=== PATIENT | male | born 1955 | race Caucasian/White ===

== ENCOUNTER → 2021-09-14 | Outpatient (CLI) | payer MEDICARE, OTHER ==
--- NOTE | 2021-09-14 22:20 | US ---
EXAMINATION TYPE: US renals and bladder DATE OF EXAM: 09/14/2021 COMPARISON: NONE CLINICAL HISTORY: R31.1 micro hematuria. EXAM MEASUREMENTS: Right Kidney: 10.7 x 4.7 x 5.5 cm Left Kidney: 10.5 x 5.5 x 4.8 cm Post Void Residual Volume: mL Patient of large body habitus, technically difficult study. Right Kidney: No hydronephrosis or masses seen Left Kidney: No hydronephrosis or masses seen Bladder: wnl Bilateral Jets seen: Yes Normal Post Void Residual: Yes There is no evidence for hydronephrosis at this point in time. No nephrolithiasis is seen. No chalino s are identified. The urinary bladder is adequately distended. Bilateral ureteral jets are seen. Af ter voiding small amount of residual urine with volume near 15 cc. IMPRESSION: Unremarkable study. Source of hematuria not identified. If symptoms persist further inves tigation with CT urogram would be warranted.
== END | disposition home or self-care (01) ==
LOC: RADUSWWP 18:08
PROVIDERS: ATTEND Urology
DX: R31.1 Benign essential microscopic hematuria (principal)
CPT/HCPCS: 76770

== ENCOUNTER → 2022-03-06 | Outpatient (CLI) | payer MEDICARE ==
[2022-03-06 14:44] LABS: Hepatitis B Surface Antigen Nonreactive (Nonreactive)
[2022-03-06 14:51] LABS: African American GFR (CKD) 91.1 (60.0-200.0); Albumin 4.4 g/dL (3.8-4.9); Albumin/Globulin Ratio 1.2 (1.60-3.17); Anion Gap 11.3 mmol/L (10.00-18.00); BUN/Creat Ratio 14.3 Ratio (12.00-20.00); Blood Urea Nitrogen 14.3 mg/dL (9.0-27.0); Calcium 9.5 mg/dL (8.7-10.3); Carbon Dioxide 24.5 mmol/L (20.0-27.5); Globulin 3.6 g/dL (1.6-3.3); Non-African American GFR(CKD) 78.6 (60.0-200.0); Potassium 4.8 mmol/L (3.5-5.5); Total Bilirubin 0.4 mg/dL (0.30-1.20)
[2022-03-07 06:57] LABS: Hepatitis BE Antibody REACTIVE (Nonreactive)
[2022-03-07 06:58] LABS: Hepatitis BE Antigen Nonreactive (Nonreactive)
[2022-03-07 10:01] LABS: Hepatitis B Virus DNA DETECTED (Not detected); Hepatitis B Virus DNA, Quant <10 IU/mL (<10); Log HBV IU/mL <1.00 (<1.00)
== END | disposition home or self-care (01) ==
LOC: LABWHC1 08:05
PROVIDERS: ATTEND Internal Medicine Gastroenterology
DX: B19.10 Unspecified viral hepatitis B without hepatic coma (principal)
CPT/HCPCS: 36415; 80053; 82105; 86707; 87340; 87350; 87517

== ENCOUNTER → 2022-09-05 | Outpatient (CLI) | payer MEDICARE ==
[2022-09-05 15:04] LABS: HCT 50.2 % (39.6-50.0); HGB 15.9 g/dL (13.0-17.0); MCH 27.5 pg (27.0-32.0); MCHC 31.7 g/dL (32.0-37.0); MCV 86.9 fL (80.0-97.0); Mean Platelet Volume 10.4 fL (9.5-12.2); Platelet Count 263 X 10*3/uL (140-440); RBC 5.78 X 10*6/uL (4.40-5.60); RDW 13.2 % (11.5-14.5); WBC 6.18 X 10*3/uL (4.50-10.00)
[2022-09-05 15:05] LABS: NRBC Per 100 WBC 0 /100 WBCS (0.0-0.0)
[2022-09-05 15:54] LABS: African American GFR (CKD) 80.6 (60.0-200.0); Albumin 4.5 g/dL (3.8-4.9); Albumin/Globulin Ratio 1.41 (1.60-3.17); Anion Gap 12.4 mmol/L (10.00-18.00); BUN/Creat Ratio 15.64 Ratio (12.00-20.00); Blood Urea Nitrogen 17.2 mg/dL (9.0-27.0); Calcium 9.6 mg/dL (8.7-10.3); Carbon Dioxide 26.6 mmol/L (20.0-27.5); Globulin 3.2 g/dL (1.6-3.3); Non-African American GFR(CKD) 69.6 (60.0-200.0); Potassium 4.7 mmol/L (3.5-5.5); Total Bilirubin 0.4 mg/dL (0.30-1.20); Total Protein 7.7 g/dL (6.2-8.2)
[2022-09-05 16:08] LABS: Hepatitis B Surface Antibody Reactive (Nonreactive)
[2022-09-05 16:22] LABS: Hepatitis B Surface Antigen Nonreactive (Nonreactive)
[2022-09-06 09:37] LABS: Hepatitis B Virus DNA Not detected (Not detected); Hepatitis B Virus DNA, Quant <10 IU/mL (<10); Log HBV IU/mL <1.00 (<1.00)
== END | disposition home or self-care (01) ==
LOC: LABWHC1 08:29
PROVIDERS: ATTEND Internal Medicine Gastroenterology
DX: B16.9 Acute hepatitis B without delta-agent and without hepatic coma (principal)
CPT/HCPCS: 36415; 80053; 85027; 86706; 87340; 87517